=== PATIENT | male | born 1985 | race Caucasian/White ===

== ENCOUNTER 2025-01-10 09:20 | Emergency (ER) | payer OTHER ==
[2025-01-10 09:26] VITALS: BP 134/90; PULSE 72; RESP 18; TEMP 98.2; BMI 25.8
[2025-01-10] MEDS ORDERED: ACETAMINOPHEN INJECTION 100 ML ONE (10:55)
[2025-01-10] MEDS: ACETAMINOPHEN 1000 MG/100 ML BAG IVPB ONE (10:56)
[2025-01-10 11:06] LABS: ABSOLUTE IMMATURE GRANULOCYTES 0.04 x10^3/uL (0.0-0.031); BASOPHILS # 0.04 x10^3/uL (0.01-0.08); EOSINOPHIL % 5.3 % (0.8-7.0); EOSINOPHILS # 0.59 x10^3/uL (0.04-0.54); MCHC 32.5 g/dl (32.3-36.5); MEAN CELL VOLUME 86.8 fl (79.0-92.2); MEAN PLT VOLUME 10.9 fl (9.4-12.4); MONOCYTE # 0.80 x10^3/uL (0.30-0.82); MONOCYTE % 7.1 % (5.3-12.2); RDW 13.5 % (12.0-15.6)
[2025-01-10 11:37] LABS: CO2 30.0 mmol/L (21-32); GLUCOSE,RANDOM 104.0 mg/dL (74-106)
[2025-01-10 11:40] LABS: CREATININE 0.9 mg/dL (0.55-1.3); SGPT/ALT 34.0 U/L (13-61)
[2025-01-10 11:41] LABS: SGOT/AST 16.0 U/L (15-37)
[2025-01-10 11:42] LABS: TOT PROT 6.6 g/dl (6.4-8.2)
[2025-01-10 11:43] LABS: ALK PHOS 113.0 U/L (45-117)
[2025-01-10] MEDS ORDERED: LIDOCAINE HCL/PF 1% SDV 5ML VIAL ONE ×2 (12:14→12:37)
[2025-01-10] MEDS: LIDOCAINE HCL 1%, 10 MG/ML (50 mL VIAL) SQ ONE ×2 (12:20→12:38)
[2025-01-10] MEDS: KETOROLAC TROMETHAMINE 15 MG/ML VIAL IVPUSH ONE (13:12)
[2025-01-10] MEDS ORDERED: DALBAVANCIN HCL 500 MG VIAL (RESTRICTED TO ID ONLY) IVPB ONE ×2 (13:23→13:24)
[2025-01-10] MEDS ORDERED: DEXTROSE 5%-WATER 100 ML IVPB ONE (13:26)
[2025-01-10] MEDS: DALBAVANCIN HCL 1,500 MG in DEXTROSE 5%-WATER - 500 ML IVPB ONE (13:35)
[2025-01-10] MEDS: IBUPROFEN 600 MG TABLET (FP) PO ONE (13:35)
[2025-01-10] MEDS ORDERED: IBUPROFEN 600 MG TABLET (FP) PO ONE (13:38)
[2025-01-10 14:41] LABS: HCV DIAGNOSTIC IN-HOUSE W/RFLX NON-REACTIVE (NONREACTIVE)
[2025-01-10 14:53] LABS: HIV INTERPRETATION NEGATIVE (NEGATIVE)
== END 2025-01-10 15:18 | disposition home or self-care (01) ==
LOC: JER 09:20
PROC: 0H98XZZ Drainage of Buttock Skin, External Approach (ICD-10-PCS; principal; 2025-01-10)
PROC: 3E03329 Introduction of Other Anti-infective into Peripheral Vein, Percutaneous Approach (ICD-10-PCS; 2025-01-10)
PROC: 3E033NZ Introduction of Analgesics, Hypnotics, Sedatives into Peripheral Vein, Percutaneous Approach (ICD-10-PCS; 2025-01-10)
PROC: 3E0333Z Introduction of Anti-inflammatory into Peripheral Vein, Percutaneous Approach (ICD-10-PCS; 2025-01-10)
DX: L02.31 Cutaneous abscess of buttock (principal); R50.9 Fever, unspecified
CPT/HCPCS: 36415; 80053; 85025; 86803; 87389; 99285-25; J0875